=== PATIENT | female | born 1955 | race Caucasian/White ===

== ENCOUNTER 2019-01-28 06:53 | Day surgery (SDC) | payer OTHER ==
[~2019-01-28] VITALS: Ht 157.5 cm; Wt 110.6 kg
[~2019-01-28 06:53] MED LIST: AMLO10 PO; ASPI81CH PO; CEPH500 PO; ERGO400 PO; FURO20 PO; HYDR1TAB94 PO; LOSA50 PO; LOVA40 PO; MELA3 PO; METO100ER PO; NAPR220 PO; Omeprazole20 M1 PO; POTCHL10ER PO; RAMI5 PO; SUCR1 PO; TRIA50 PO; Triamterene W/1 EACH PO; Zantac150 MG PO
[2019-01-28] MEDS ORDERED: TORS10 PO (07:15)
[2019-01-28] MEDS ORDERED: FAMO10 PO (07:19)
[2019-01-28] MEDS ORDERED: ALBU90OI INH (07:20)
--- NOTE | 2019-01-28 07:25 | NUR ---
Ambulatory in Day Surgery History, Chart, Medications and Allergies reviewed before start of procedure.LUNGS WITH SCATTERED EXP WZ R>L. DUO NEB GIVEN. PT DENIES SOB AND NO NOTED SOB AT THIS TIME. Patient confirms NPO status and agrees with scheduled surgery. Patient States Post-Procedure ride home has been arranged.
--- NOTE | 2019-01-28 08:07 | NUR ---
01/28/19 0807 Melanie Armijo PT TO ENDO ROOM 1. MONITOR INTACT WITH CONTINUOUS PULSE OXIMETRY AND INTERMITTENT BP. O2 VIA N/C INTACT THROUGHOUT SEDATION/PROCEDURE. 3-LEAD EKG REVIEWED WITH PHYSICIAN PRIOR TO START OF PROCEDURE. O2 VIA N/C INTACT THROUGHOUT SEDATION/PROCEDURE. DR. ALCANTARA PROVIDING MAC.
--- NOTE | 2019-01-28 08:45 | NUR ---
PATIENT AWAKE AND ALERT.
--- NOTE | 2019-01-28 09:05 | NUR ---
Discharge instructions reviewed with patient. Patient verbalizes understanding. Copy given to patient to take home. Patient States Post-Procedure ride home has been arranged with daughter. Patient is steady on her feet and vitals signs are stable.
== END 2019-01-28 09:15 | disposition home or self-care (01) ==
LOC: ORSCMMR 06:53 → ORD 08:00 → ORSCMMR 08:00
PROVIDERS: Internal Medicine Gastroenterology
PROC: 0DB68ZX Excision of Stomach, Via Natural or Artificial Opening Endoscopic, Diagnostic (ICD-10-PCS; principal; 2019-01-28 08:00)
DX: K31.9 Disease of stomach and duodenum, unspecified (principal); K21.0 Gastro-esophageal reflux disease with esophagitis; K29.50 Unspecified chronic gastritis without bleeding; G47.33 Obstructive sleep apnea (adult) (pediatric); J44.9 Chronic obstructive pulmonary disease, unspecified; I10 Essential (primary) hypertension; E78.00 Pure hypercholesterolemia, unspecified; Z79.82 Long term (current) use of aspirin; Z79.899 Other long term (current) drug therapy; Z87.891 Personal history of nicotine dependence; E66.01 Morbid (severe) obesity due to excess calories; Z68.41 Body mass index [BMI] 40.0-44.9, adult
CPT/HCPCS: 88305; 88341; 88342; J2704; J7120

== ENCOUNTER → 2021-09-09 | Outpatient (CLI) | payer OTHER ==
[~2021-09-09] MED LIST changes: +ALBU90OI INH; +FAMO10 PO; +TORS10 PO
[2021-09-09 12:51] LABS: Albumin, Blood 3.7 g/dL (3.4-5.0); Anion Gap 3 mmol/L (6-16); Blood Urea Nitrogen 19 mg/dL (8-24); Bun/Creatinine Ratio 21.1 (12.0-20.0); CO2, Blood 32 mmol/L (21-32); Calcium, Blood 9.6 mg/dL (8.5-10.1); Chloride, Blood 105 mmol/L (98-108); Glomerular Filtration Rate 70 (60-); Glucose, Blood 101 mg/dL (70-99); Potassium, Blood 4.3 mmol/L (3.5-5.5); Sodium, Blood 140 mmol/L (136-145)
== END | disposition home or self-care (01) ==
LOC: LAB SHORT 09:38 → LAB 09:38
PROVIDERS: Nurse Practitioner Family
DX: I15.9 Secondary hypertension, unspecified (principal); N18.30 Chronic kidney disease, stage 3 unspecified
CPT/HCPCS: 36415; 80069